=== PATIENT | male | born 1995 | race Caucasian/White ===

== ENCOUNTER → 2020-12-15 14:01 | Outpatient (CLI) | payer BC, SELFPAY ==
[2020-12-15 14:58] LABS: COVID19 -Nasal RAPID POSITIVE (Negative)
== END ==
PROVIDERS: Referring Provider Nurse Practitioner Family; Visit Provider Nurse Practitioner Family
DX: U07.1 COVID-19 (principal); Z20.822 Contact with and (suspected) exposure to COVID-19; R09.81 Nasal congestion; R05.9 Cough, unspecified
CPT/HCPCS: 87635